=== PATIENT | male | born 1970 | race Caucasian/White ===

== ENCOUNTER 2020-02-22 08:21 | Day surgery (SDC) | payer MEDICARE, MEDICAID ==
[2020-02-14 14:58] LABS: BASOPHILS % (AUTO) 0.8 % (0-1); EOSINOPHILS # (AUTO) 0.1 X10'3 (0-0.9); EOSINOPHILS % (AUTO) 2.1 % (0-6); LYMPHOCYTES # (AUTO) 1.5 X10'3 (1.1-4.8); LYMPHOCYTES % (AUTO) 24.8 % (21-51); MEAN CORPUSCULAR HEMOGLOBIN 29.8 PG (27.0-31.0); MEAN CORPUSCULAR HGB CONC 33.2 g/dL (33.0-36.5); MEAN CORPUSCULAR VOLUME 89.8 FL (78-98); MEAN PLATELET VOLUME 8.5 FL (7.4-10.4); MONOCYTES # (AUTO) 0.8 X10'3 (0-0.9); MONOCYTES % (AUTO) 13.3 % (2-12); NEUTROPHILS # (AUTO) 3.6 X10'3 (1.8-7.7); PRE OP HEMATOCRIT 49.6 % (42.0-52.0); PRE OP HEMOGLOBIN 16.5 g/dL (14.0-17.9); PRE OP PLATELET COUNT 228 X10'3 (140-440); RED BLOOD COUNT 5.52 X10'6 (4.70-6.10); RED CELL DISTRIBUTION WIDTH 14.1 % (11.5-14.5)
[2020-02-14 15:12] LABS: ALBUMIN 3.9 G/DL (3.4-5.0); ALBUMIN/GLOBULIN RATIO 1.2 (1.1-1.5); ALKALINE PHOSPHATASE 43 IU/L (46-116); BLOOD UREA NITROGEN 12 MG/DL (7-18); BUN/CREATININE RATIO 7.7 (5.4-32.0); CALCIUM 8.4 MG/DL (8.5-10.1); CHLORIDE 107 MMOL/L (99-107); CREATININE 1.55 MG/DL (0.60-1.10); PRE OP ALT 35 U/L (30-65); PRE OP ANION GAP 8 (8-16); PRE OP AST 23 U/L (10-37); PRE OP BILIRUB, TOTAL 0.6 MG/DL (0.0-1.0); PRE OP GLUCOSE 92 MG/DL (70-104); PRE OP POTASSIUM 4.1 MMOL/L (3.4-5.1); PRE OP SODIUM 143 MMOL/L (135-145); TOTAL CARBON DIOXIDE 27.8 MMOL/L (24-32); TOTAL PROTEIN 7.1 G/DL (6.4-8.2); eGFR 48 ML/MIN
[~2020-02-22] VITALS: Ht 175.3 cm; Wt 90.7 kg
[2020-02-22] VITALS (7 sets, daily range): BP systolic 98–135; BP diastolic 50–80
[~2020-02-22 08:21] MED LIST: OMEP-50 PO; ceFAZolin 2gm in dextrose, iso 50 ML IV ONE; famotidine 20mg tablet PO ONE; ringers solution, lacted 1,000 ML IV SCH; vancomycin 1,500 MG in NS 300ml IV soln IV ONE
[2020-02-22] MEDS ORDERED: methylPREDNISolone sod succ 125mg/2ml vial ONE (10:08)
[2020-02-22] MEDS ORDERED: BUPIVAcaine/PF 2.5 mg/ml (0.25%) 30ml vial ONE (10:08)
[2020-02-22] MEDS ORDERED: LIDOcaine 0.5% (5mg/ml) 50ml vial ONE (11:10)
[2020-02-22] MEDS ORDERED: ringers solution, lacted 1,000 ML IV SCH (11:12)
[2020-02-22] MEDS ORDERED: hydrALAZINE 20mg/ml inj. IV PRN (11:15)
[2020-02-22] MEDS ORDERED: labetalol 20mg/4ml (5mg/ml) syringe IV PRN (11:15)
[2020-02-22] MEDS ORDERED: ondansetron/PF 4mg/2ml inj IV PRN (11:15)
[2020-02-22] MEDS ORDERED: fentaNYL/PF 50MCG/1 ML 2ML syringe IV PRN ×2 (11:15)
[2020-02-22] MEDS ORDERED: morphine 4 MG/ML inj SYRINge IV PRN (11:15)
[2020-02-22] MEDS ORDERED: morphine 2 MG/ML inj. syringe IV PRN (11:15)
[2020-02-22] MEDS ORDERED: fentaNYL/PF 50MCG/1 ML 2ML syringe ONE (11:20)
[2020-02-22] MEDS ORDERED: MIDAZolam 5mg/5ml vial ONE (11:20)
[2020-02-22] MEDS ORDERED: LIDOcaine 2% (20mg/ml) 5ml vial ONE (11:22)
[2020-02-22] MEDS ORDERED: ketorolac trometh. 30mg/ml inj. ONE (11:22)
--- NOTE | 2020-02-22 12:03 | NUR ---
Received from OR via [facility], accompanied by Anesthesiologist DR FAIRCHILD and report given by Anesthesiologist. 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 Addendum: 02/22/20 at 1233 by Mae Shah RN Amended: Links added.
--- NOTE | 2020-02-22 13:13 | NUR ---
D/C INSTRUCTIONS GIVEN AND GONE OVER W/PT WHO VERBALIZED UNDERSTANDING, PT COMFORTABLE, STEADY ON FEET, D/CD TO HOME VIA W/C TO PRIVATE VEHICLE W/O INCIDENT. Addendum: 02/22/20 at 1337 by Mae Shah RN Amended: Links added.
== END 2020-02-22 13:13 | disposition home or self-care (01) ==
LOC: PAS 08:21
PROVIDERS: ATTEND Orthopaedic Surgery
DX: G56.02 Carpal tunnel syndrome, left upper limb (principal); G56.22 Lesion of ulnar nerve, left upper limb; G89.4 Chronic pain syndrome; K21.9 Gastro-esophageal reflux disease without esophagitis; E66.8 Other obesity; Z68.30 Body mass index [BMI] 30.0-30.9, adult; M19.041 Primary osteoarthritis, right hand; Z11.59 Encounter for screening for other viral diseases; Z79.899 Other long term (current) drug therapy; Z98.890 Other specified postprocedural states; F17.210 Nicotine dependence, cigarettes, uncomplicated; Z72.89 Other problems related to lifestyle
CPT/HCPCS: 36415; 64719; 64721; 80053; 82948; 85025; 93005; A6222; J1885; J2001; J2250; J2930; J3010; J3370; J3490; J7040; U0003; A4215; A4618; A6449; A7000; J7120

== ENCOUNTER 2024-01-02 23:49 | Emergency (ER) | payer MEDICARE, MEDICAID ==
[~2024-01-02] VITALS: Ht 175.3 cm; Wt 81.8 kg
[~2024-01-02 23:49] MED LIST changes: -OMEP-50 PO; +OMEP20CA16 PO; -ceFAZolin 2gm in dextrose, iso 50 ML IV ONE; -famotidine 20mg tablet PO ONE; -ringers solution, lacted 1,000 ML IV SCH; -vancomycin 1,500 MG in NS 300ml IV soln IV ONE
[2024-01-02 23:55] VITALS: BP 131/86; PULSE 96; RESP 20; TEMP 98; O2SAT 95
== END 2024-01-03 02:47 | disposition left against medical advice (07) ==
LOC: ER 23:50
DX: M54.50 Low back pain, unspecified (principal); Z53.21 Procedure and treatment not carried out due to patient leaving prior to being seen by health care provider